=== PATIENT | female | born 1960 | race Caucasian/White ===

== ENCOUNTER → 2018-11-25 07:31 | Outpatient (CLI) | payer BC, SELFPAY ==
--- NOTE | 2018-11-25 07:34 | NM_ITS ---
History:C.P. Procedure: Patient exercised on Vipin protocol 5 minutes and 14 sec, resting heart rate 88 bpm, resting blood pressure 140/52, with exercise maximum heart rate achieve was 144 bpm which is greater than 85 % of the maximum predicted heart rate and blood pressure was 134/89. Test was stopped due to shortness of breath, patient denied any complaint of chest pain. Patient has adequate exercise capacity achieved 7 mets of workload on treadmill, the blood pressure response to exercise was adequate. Electrocardiogram: Resting electrocardiogram showed sinus rhythm ., with exercise there is less than 1.5mm ST segment depression noted from the baseline EKG. The EKG portion of the exercise Myoview is negative for ischemia. Cardias Stress and Resting SPECT images: Cardias Stress and Resting SPECT images were obtained using technetium 99m Myoview 29.8 mCi stress and 9.57 mCi at rest. Gated SPECT further analysis of segmental wall motion and calculation of ejection fraction also done. Cardiac stress and resting SPECT show uniform myocardial activity without segmental perfusion abnormality, the computer derived ejection fraction is over 65% with regional wall motion abnormality, right ventricle is normal size and contractility. Conclusion: 1. The EKG portion of the exercise Myoview is negative for ischemia, patient has adequate exercise capacity achieved 7mets of workload on treadmill, the blood pressure response to exercise was abnormal. 2. No scintigraphic evidence of reversible ischemia seen, computer derived ejection fraction is over 65%% with no regional wall motion abnormality, right ventricle is normal size and contractility. 3. Abnormal exercise Myoview study due to abnormal blood pressure response to exercise.
--- NOTE | 2018-11-25 10:24 | HMH.ITSHM ---
Current Home Medications as stated by this patient Judy Chang or veterans contact representative. []zertec hydrocodone/apap
== END ==
PROVIDERS: PCP Emergency Medicine; Visit Provider Emergency Medicine
DX: R07.9 Chest pain, unspecified (principal)
CPT/HCPCS: 78452; 93017; A9502

== ENCOUNTER → 2018-12-02 13:47 | Outpatient (CLI) | payer BC, SELFPAY ==
--- NOTE | 2018-12-02 13:48 | MR_ITS ---
PROCEDURE: MR CERVICAL SPINE WO CON CLINICAL INDICATION: neck pain NECK PAIN WITH NUMBNESS AND TINGLING DOWN LEFT ARM WITH HEADACHE COMPARISON: No exams were available for comparison TECHNIQUE: Standard multiplanar multiecho sequences are performed without contrast. 3-D MIP and myelographic images are also rendered and reviewed FINDINGS: There is reversal of the normal lordosis which may be due to patient positioning or muscle spasm.. There is normal alignment. The cranial cervical junction has an unremarkable appearance. C2-C3: Unremarkable. C3-C4: Degenerate disc disease with bulging disc with mild left-sided foraminal narrowing. C4-C5: There is mild anterolisthesis of C4 on C5 of 3 mm. Mild right-sided foraminal narrowing from uncovertebral hypertrophy. Degenerative disc disease C5-C6: Degenerative disc disease with bulging disc. There is canal stenosis at 10 mm with bilateral lateral recess and foraminal narrowing greater on the left with small left foraminal disc osteophyte complex. There is minimal impingement upon the cord anteriorly C6-C7: Mild degenerative disc disease with minimal bulging disc. Borderline canal stenosis. C7-T1: Unremarkable. IMPRESSION: Multilevel cervical spondylosis with reversal of lordosis. C3-C4: Degenerative disc disease with bulging disc with mild left-sided foraminal narrowing. C4-C5: There is mild anterolisthesis of C4 on C5 of 3 mm. Mild right-sided foraminal narrowing from uncovertebral hypertrophy. Degenerative disc disease C5-C6: Degenerative disc disease with bulging disc. There is canal stenosis at 10 mm with bilateral lateral recess and foraminal narrowing greater on the left with small left foraminal disc osteophyte complex. There is minimal impingement upon the cord anteriorly C6-C7: Mild degenerative disc disease with minimal bulging disc. Borderline canal stenosis Dictated by: Sergio Moseley MD 12/03/2018 06:05 Signed by: <Electronically signed by Sergio Moseley MD in [place]> 12/03/2018 06:05
--- NOTE | 2018-12-02 13:48 | MR_ITS ---
PROCEDURE: MR LUMBAR SPINE WO CON CLINICAL INDICATION: back pain Left-sided low back pain. Right leg numbness COMPARISON: No exams were available for comparison TECHNIQUE: Standard multiplanar multiecho sequences are performed without contrast. 3-D MIP and myelographic images are also rendered and reviewed FINDINGS: There is normal alignment. The spinal cord ends at the L1 level. T11-T12 and T12-L1 have an unremarkable appearance. L1-L2: Tiny left paracentral disc protrusion without impingement. L2-L3: Mild degenerative disc disease with bulging disc along with a small broad-based left paracentral and foraminal disc protrusion with annular fissure causing left lateral recess and left foraminal narrowing abutting the anterior aspect of the left L3 nerve root. L3-L4: Mild bulging disc with mild facet ligamentum hypertrophy. L4-5: Degenerative disc disease with mild bulging disc and facet hypertrophic change with mild bilateral foraminal narrowing slightly greater on the right. L5-S1: Unremarkable. No canal stenosis. There is a 1 cm right renal cyst. IMPRESSION: L2-L3: Mild degenerative disc disease with bulging disc along with a small broad-based left paracentral and foraminal disc protrusion with annular fissure causing left lateral recess and left foraminal narrowing abutting the anterior aspect of the left L3 nerve root. L3-L4: Mild bulging disc with mild facet ligamentum hypertrophy. L4-5: Degenerative disc disease with mild bulging disc and facet hypertrophic change with mild bilateral foraminal narrowing slightly greater on the right Dictated by: Sergio Moseley MD 12/03/2018 06:25 Signed by: <Electronically signed by Sergio Moseley MD in [place]> 12/03/2018 06:25
== END ==
PROVIDERS: PCP Emergency Medicine; Visit Provider Emergency Medicine
DX: M51.36 Other intervertebral disc degeneration, lumbar region (principal); M50.30 Other cervical disc degeneration, unspecified cervical region
CPT/HCPCS: 72141; 72148; 76376

== ENCOUNTER → 2019-03-13 17:05 | Outpatient (CLI) | payer BC, SELFPAY | PROVIDERS: Visit Provider Emergency Medicine | DX: R31.9 Hematuria, unspecified (principal) | CPT/HCPCS: 87086 ==

== ENCOUNTER 2020-04-26 20:26 | Emergency (ER) | payer BC, SELFPAY ==
[2020-04-26 20:30] VITALS: BP 176/102; PULSE 87; RESP 20; TEMP 36.7; O2SAT 95; BMI 29.7
--- NOTE | 2020-04-26 20:39 | HMH.EDUTC ---
[facility] Disposition Clinical Impression: DDD (degenerative disc disease), cervical Low back pain Qualifiers: Chronicity: acute Back pain laterality: right Sciatica presence: with sciatica Sciatica laterality: sciatica of right side Qualified Code(s): M54.41 - Lumbago with sciatica, right side Disposition: Home, Self-Care Condition on Discharge: Good Instructions: Degenerative Disc Disease, DI for Back Pain With Sciatica Additional Instructions: Go home and rest. It would be best if you rested tomorrow too. No heavy lifting. No twisting. Take the oral medications as directed. The muscle relaxer (robaxin) will make you drowsy, so don't drive or operate heavy machinery after taking it. Don't start the oral steroids (medrol dose pack) until tomorrow, since you had the shots in here today. Follow up with your regular doctor. GO TO THE ER FOR ANY WORSENING SYMPTOMS OR CONCERN, ESPECIALLY BOWEL OR BLADDER ISSUES, SADDLE AREA NUMBNESS, FEVER, ETC Prescriptions: Ibuprofen [Ibuprofen 800mg Tablet] 800 mg PO Q8HP PRN #30 tab PRN Reason: Moderate Pain Transmission Status: Sent to [facility] Methocarbamol [Robaxin 500mg Tab] 500 mg PO BIDP PRN #30 tab PRN Reason: Muscle Spasm Transmission Status: Sent to [facility] Referrals: Paulino Oneil MD [Primary Care Provider] - Time of Disposition: 21:00 Medical Decision Making - Medical Records Medical records reviewed: No: I reviewed the patient's medical records. - Dipak Inquiry Pt receiving controlled substance: No Vital Signs: 04/26/20 20:30 04/26/20 20:57 Temperature 98.0 F 98.0 F Temperature Source Oral Pulse Rate 87 Pulse Rate [Right Brachial] 87 Respiratory Rate 20 20 Blood Pressure 176/102 H Blood Pressure [Right Arm] 176/102 H Blood Pressure Mean [Right Arm] 126 Blood Pressure Source [Right Arm] Automatic Cuff Blood Pressure Position [Right Arm] Sitting 02 Sat by Pulse Oximetry 95 Oxygen Delivery Method Room Air Orders (Tests/Meds): ED MEDICATIONS Discontinued Medications Generic Name Dose Route Start Last Admin Trade Name Freq PRN Reason Stop Dose Admin Methylprednisolone Sodium Succinate 125 mg 04/26/20 20:47 04/26/20 20:50 Methylprednisolone Sod Succ 125mg Vial IM 04/26/20 20:48 125 mg ONCE ONE Administration [facility] HPI - General Stated complaint: back pain Time Seen by Provider: 04/26/20 20:39 - History of Present Illness Provider Complaint: She c/o low back pain since around 1400 today. She states that she was lifting a case of pop out of her trunk of her car and felt a pop in her lower back. Since then she has had low back pain. She states the pain radiates down her rigth leg at times. She rates it as a 7/10 at this time. She denies any lower extremity numbness. She denies any bowel or bladder complaints. - Related Data Home Medications Medication Instructions Recorded Confirmed cetirizine 10 mg tablet 10 mg PO DAILY 10/10/18 03/13/19 hydrocodone 10 mg-acetaminophen 1 tab PO TID PRN 10/10/18 03/13/19 325 mg tablet multivitamin 1 tab PO DAILY 10/10/18 03/13/19 Previous Rx's Medication Instructions Recorded fluticasone propionate 50 1 spray INTRANASAL DAILY #9.9 g 12/26/18 mcg/actuation nasal spray,suspension bupropion HCl 75 mg tablet 75 mg PO BID #60 tab 12/30/18 cyclobenzaprine 10 mg tablet 10 mg PO TID #21 tab 03/13/19 prednisone 20 mg tablet 20 mg PO BID #10 tab 03/13/19 Ibuprofen [Ibuprofen 800mg 800 mg PO Q8HP PRN #30 tab 04/26/20 Tablet] Methocarbamol [Robaxin 500mg Tab] 500 mg PO BIDP PRN #30 tab 04/26/20 Allergies Allergy/AdvReac Type Severity Reaction Status Date / Time latex Allergy Verified 03/13/19 15:06 Sulfa (Sulfonamide Allergy Verified 04/26/20 20:45 Antibiotics) [facility] History - Hepatitis A Screen Attestation statement:: This patient has been screened for Hepatitis A risk factors. I have reviewed th
[2020-04-26 20:57] VITALS: BP 176/102; PULSE 87; RESP 20; TEMP 36.7; O2SAT 95
== END 2020-04-26 21:08 | disposition home or self-care (01) ==
PROVIDERS: Emergency Provider Nurse Practitioner Family; PCP Emergency Medicine
DX: M50.30 Other cervical disc degeneration, unspecified cervical region (principal); M54.41 Lumbago with sciatica, right side; F17.210 Nicotine dependence, cigarettes, uncomplicated; Z91.040 Latex allergy status; Z88.2 Allergy status to sulfonamides
CPT/HCPCS: 96372; 99202; G0463

== ENCOUNTER → 2020-05-07 18:15 | Outpatient (CLI) | payer BC, SELFPAY ==
[2020-05-07 18:47] LABS: Basophils # 0.1 K/mm3 (0-0.2); Basophils % 0.4 % (0.1-2.0); Eosinophils # 0.1 K/mm3 (0.0-0.4); Eosinophils % 0.4 % (0.1-12.0); Hematocrit 47.9 % (37.0-47.0); Hemoglobin 16.4 g/dL (12.2-16.2); Lymphocytes # 3.4 K/mm3 (0.7-4.5); Lymphocytes % 20.1 % (10-50); Mean Corpuscular HGB Conc 34.3 g/dL (31.8-35.4); Mean Corpuscular Hemoglobin 33.2 pg (27.0-31.2); Mean Corpuscular Volume 96.7 fl (81-99); Mean Platelet Volume 8.1 fl (7.4-10.4); Monocytes # 0.6 K/mm3 (0.1-1.0); Monocytes % 3.7 % (1.7-9.3); Neutrophils # 12.6 K/mm3 (1.8-7.8); Neutrophils % 75.3 % (37.0-80.0); Platelet Count 299 K/mm3 (142-424); Red Blood Count 4.95 M/mm3 (4.20-5.40); White Blood Count 16.7 K/mm3 (4.8-10.8)
[2020-05-07 19:01] LABS: MANUAL DIFFERENTIAL MANUAL DIFFERENTIAL (MANUAL DIFF)
[2020-05-07 20:14] LABS: Alanine Aminotransferase 23 U/L (12-78); Albumin Level 4.9 g/dl (3.5-5.0); Albumin/Globulin Ratio 1.4 (1.1-1.8); Alkaline Phosphatase 261 U/L (38-126); Anion Gap 18.6 mEq/L (5-15); Aspartate Amino Transferase 23 U/L (14-36); Bilirubin,Total 0.6 mg/dl (0.2-1.3); Blood Urea Nitrogen 21 mg/dl (7-17); Calcium 10.2 mg/dl (8.4-10.2); Carbon Dioxide 23 mmol/L (22.0-30.0); Chloride 103 mmol/L (98-107); Chol/HDL Ratio 2.9 (1-3.5); Cholesterol 288 mg/dl (140-200); Estimated Glomerular Filt Rate 74 ml/min (>60); GFR (African American) 89 ML/MIN (>60); Globulin 3.4 g/dL (1.3-3.2); Glucose 124 mg/dl (74-100); HDL Cholesterol 100 mg/dl (40-60); Potassium 4.6 mmoL/L (3.5-5.1); Sodium 140 mmol/L (136-145); Total Protein,Serum 8.3 g/dl (6.3-8.2); Triglycerides 154 mg/dl (30-150); VLDL Cholesterol 31 mg/dL (0-40)
[2020-05-07 20:25] LABS: Direct LDL Cholesterol 155.77 mg/dL (100-129)
[2020-05-07 20:31] LABS: Free T4 (Free Thyroxine) 1.17 ng/dl (0.78-2.19)
[2020-05-07 20:45] LABS: Eosinophils % 1 % (0-3); Lymphocytes % 22 % (10-50); Monocytes % 6 % (2-9); Neutrophils % 71 % (42-76); Platelet Estimate Normal; RBC Morphology Normal; Thyroid Stimulating Hormone 2.07 uIU/mL (0.465-4.68); Total Cells Counted 100
[2020-05-07 20:53] LABS: 25-OH Vitamin D, Total < 12.8 ng/mL (30-100)
[2020-05-08 11:47] LABS: Hemoglobin A1C 5.5 % (4.0-6.0)
== END ==
PROVIDERS: Physician Assistant; Visit Provider Emergency Medicine
DX: E66.3 Overweight (principal); E55.9 Vitamin D deficiency, unspecified; R73.9 Hyperglycemia, unspecified
CPT/HCPCS: 80053; 80061; 82306; 83036; 84439; 84443; 85007; 85025

== ENCOUNTER → 2020-05-16 08:48 | Outpatient (CLI) | payer BC, SELFPAY ==
--- NOTE | 2020-05-16 08:53 | MR_ITS ---
PROCEDURE: MR LUMBAR SPINE WO CON CLINICAL INDICATION: back pain LOW BACK PAIN WORSE ON LEFT SIDE, LT LEG PAIN. SYMPTOMS X1 WEEK. NO INJURY OR TRAUMA. COMPARISON: MR MR LUMBAR SPINE WO CON from 12/02/2018 TECHNIQUE: Standard multiplanar multiecho sequences are performed without contrast. 3-D MIP and myelographic images are also rendered and reviewed FINDINGS: There is normal alignment. The spinal cord ends at the L1 level. T10-T11: Degenerative disc disease. T11-T12: Unremarkable. T12-L1: Unremarkable. L1-L2: Unremarkable. L2-L3: Small left paracentral and foraminal and lateral disc protrusion/disc osteophyte complex along with facet and ligamentum hypertrophy with left lateral recess and foraminal narrowing. This abuts the L3 nerve root anteriorly. Overall no significant change. L3-L4: Mild facet and ligamentum hypertrophy L4-5: Degenerative disc disease with endplate irregularity. There is bulging disc which is eccentric toward the right better demonstrated on the sagittal images with suspected disc osteophyte complex causing right foraminal narrowing. The degenerative disc disease appears slightly worse. L5-S1: Unremarkable. No extruded herniated disc or bony canal stenosis. IMPRESSION: 1. L2-L3: Small left paracentral and foraminal and lateral disc protrusion/disc osteophyte complex along with facet and ligamentum hypertrophy with left lateral recess and foraminal narrowing. This abuts the L3 nerve root anteriorly. Overall no significant change. 2. L3-L4: Mild facet and ligamentum hypertrophy 3. L4-5: Degenerative disc disease with endplate irregularity. There is bulging disc which is eccentric toward the right better demonstrated on the sagittal images with suspected disc osteophyte complex causing right foraminal narrowing. Slight worsening of the degenerative disc disease. 4. No extruded herniated disc or bony canal stenosis. Dictated by: Sergio Moseley MD 05/19/2020 08:33 Sergio Moseley MD in [place] 05/19/2020 08:33
== END ==
PROVIDERS: PCP Emergency Medicine; Visit Provider Emergency Medicine
DX: M54.5 Low back pain (principal)
CPT/HCPCS: 72148; 76376

== ENCOUNTER → 2020-05-17 08:04 | Outpatient (CLI) | payer BC, SELFPAY ==
--- NOTE | 2020-05-17 08:09 | MM_ITS ---
PROCEDURE: MM DIG SCREENING MAMM BI W/CAD Digital Breast Tomosynthesis Included CLINICAL INDICATION: screening There is a history of breast cancer patient's sister. The patient is not certain where previous mammograms were performed and will call back with information and if previous films can be obtained an addendum can be added later. COMPARISON: No exams were available for comparison TECHNIQUE: Standard CC and MLO images and 3D Tomosynthesis was obtained. R2 CAD reviewed. FINDINGS: The breasts are composed primarily of fat with minimal scattered fibroglandular densities in each breast. There is a benign-appearing calcification in each breast. There is no suspicious lesion in either breast and no suspicious microcalcifications. IMPRESSION: Fatty type breast parenchyma with no suspicious lesions seen BI-RAD Category: 2 Benign Finding(s) FOLLOW-UP: 1YR 1 Year Follow-up (A letter has been sent to the patient regarding results of the study.) Dictated by: Dr. Huy Wiggins MD 05/20/2020 10:48 Dr. Huy Wiggins MD in [place] 05/20/2020 10:48
--- NOTE | 2020-05-17 08:09 | US_ITS ---
PROCEDURE: US ABDOMEN LIMITED CLINICAL INDICATION: elevated alk phos Status COMPARISON: No exams were available for comparison FINDINGS: PANCREAS: Unremarkable. No obvious mass or abnormal fluid collection. No ductal dilatation LIVER: No focal liver lesions demonstrated. Homogeneous echogenicity. No intrahepatic biliary ductal dilatation evident. There is appropriate direction of blood flow within a non dilated portal vein RIGHT KIDNEY: Unremarkable. Normal size and echogenicity. No hydronephrosis GALLBLADDER: Prior cholecystectomy. Mild prominence of the common bile duct at 8 mm which could be due to reservoir effect from the prior cholecystectomy. IMPRESSION: Prior cholecystectomy with mild prominence of the common bile otherwise negative Dictated by: Sergio Moseley MD 05/17/2020 17:32 Sergio Moseley MD in [place] 05/17/2020 17:32
== END ==
PROVIDERS: PCP Emergency Medicine; Visit Provider Emergency Medicine
DX: Z12.31 Encounter for screening mammogram for malignant neoplasm of breast (principal); R74.8 Abnormal levels of other serum enzymes
CPT/HCPCS: 76705; 77063; 77067

== ENCOUNTER → 2020-05-29 12:41 | Outpatient (CLI) | payer BC, SELFPAY ==
--- NOTE | 2020-05-29 12:48 | XR_ITS ---
PROCEDURE: XR HIP RT 2-3V W/PELVIS CLINICAL INDICATION: right hip pain COMPARISON: No exams were available for comparison FINDINGS: No fracture or dislocation. No lytic or blastic change. There is a small sclerotic focus in the right ilium inferiorly measuring 9 mm and may be due to a bone island. There are minimal osteoarthritic changes of the hips with mild sclerosis of the acetabular roof IMPRESSION: Minimal osteoarthritic change of the hips. Dictated by: Sergio Moseley MD 05/29/2020 13:57 Sergio Moseley MD in [place] 05/29/2020 13:57
--- NOTE | 2020-05-29 12:48 | XR_ITS ---
PROCEDURE: XR KNEE RT 4V CLINICAL INDICATION: right knee pain COMPARISON: No exams were available for comparison FINDINGS: No fracture or dislocation. No lytic or blastic change. There is normal mineralization. There are mild osteoarthritic changes of the lateral compartment. Other findings:None. IMPRESSION: Mild osteoarthritis Dictated by: Sergio Moseley MD 05/29/2020 13:55 Sergio Moseley MD in [place] 05/29/2020 13:55
== END ==
PROVIDERS: PCP Emergency Medicine; Visit Provider Orthopaedic Surgery
DX: M25.551 Pain in right hip (principal); M25.561 Pain in right knee
CPT/HCPCS: 73502; 73564

== ENCOUNTER → 2020-06-06 14:27 | Outpatient (CLI) | payer BC, SELFPAY ==
--- NOTE | 2020-06-06 14:39 | MR_ITS ---
PROCEDURE: MR KNEE RT WO CON CLINICAL INDICATION: evaluate for meniscal tear Chronic right knee pain with no known recent injury or trauma. History of right knee surgery 2 years ago COMPARISON: CR XR KNEE RT 4V from 05/29/2020 TECHNIQUE: Routine multiplanar multi echo sequences are performed without gadolinium enhancement. FINDINGS: There is a small amount of fluid in the joint space. There is normal patellofemoral alignment in this imaging position. There is extensive heterogeneity and surface irregularity of cartilage in the patellofemoral compartment. There is thinning and irregularity of cartilage in the lateral compartment. Thinning of cartilage in the medial department with heterogeneity. There is subcortical cystic change with localized edema in the superolateral tibial plateau. There are no other locations of edema. The medial meniscus is intact and normal. The lateral meniscus overlies the area of tibial bony injury but there is no definite tear involving the overlying lateral meniscus, correlate clinically. The ACL and PCL are intact and normal. The quadriceps and patellar tendons are intact and normal. The medial collateral ligament and the lateral collateral ligament complex are intact. Popliteus muscle and tendon are intact and normal. IMPRESSION: Three compartment chondromalacia with small joint effusion the chronic or post injury change in the lateral tibial plateau immediately underlying the lateral meniscus but without definite meniscal tear by MRI appearance. Dictated by: Janett Quiroga MD 06/06/2020 18:03 Janett Quiroga MD in [place] 06/06/2020 18:03
== END ==
PROVIDERS: PCP Emergency Medicine; Visit Provider Orthopaedic Surgery
DX: M25.561 Pain in right knee (principal)
CPT/HCPCS: 73721

== ENCOUNTER → 2020-06-27 09:46 | Outpatient (POV) | payer BC, SELFPAY ==
[2020-06-27 10:12] VITALS: BP 135/88; PULSE 74; RESP 18; O2SAT 98; BMI 30.5
--- NOTE | 2020-06-27 14:00 | HMH.PMCON ---
Assessment and Plan (1) Low back pain Status: Chronic Category: Medical Code(s): M54.5 - Low back pain (2) Lumbar disc disease with radiculopathy Status: Chronic Category: Medical Code(s): M51.16 - Intervertebral disc disorders with radiculopathy, lumbar region - Assessment and plan all Dx Assessment and Plan for all problems:: We will set the patient up for an L4-L5 lumbar epidural steroid injection I do believe given her symptomology that this would benefit her. I will follow-up with her after this reassess her symptoms at that time she was instructed to call the office if she has any issues prior to her next appointment. Dr. Segundo has reviewed this note and agrees with this plan of care. This note was dictated using voice recognition software and may contain errors or omissions HPI - Data of Consult Consult date: 06/27/20 Requesting Physician: Saundra Stanford APRN Primary Care Provider: Paulino Oneil MD - Consult Narrative Reason for consult: Low back pain History of present illness: Ms. Chang is a 59 year old female who presents today for consultation in regards to her low back pain. She rates her pain a 6 out of 10 she has radiation of her pain down her left leg. Patient states that her job with repetitive motion makes it quite a bit more difficult. Patient states that stretching decreases her pain somewhat. She has left leg numbness and tingling. Patient has tried and completed physical therapy with minimal relief. She is on [place] from her primary care physician she states it is helpful however she is noticing her back worsening. Patient is interested in potential interventional treatment of her pain. She has had this pain for over 6 months and has failed over 6 months of conservative therapy including medication management. CC: Saundra Stanford APRN [facility] History I have reviewed the patient's past medical history: Yes Medical History: Reports:: Anxiety, Hyperlipidemia, Hypertension Denies:: Cancer, Diabetes Mellitus Type 1, Diabetes Mellitus Type 2, MRSA *Have you ever received a pneumonia vaccine?: Yes *Have you received a flu vaccine this season?: Yes Other Medical History: Reports: Arthritis, Other Laterality Cases: Right: Arthroscopy Knee, Bilateral: Tonsillectomy Other Surgeries: Yes: Cholecystectomy, Colonoscopy, Diagnostic Lap, Hysterectomy-Partial Amputation: No Fractures: No - *Social History Smoking Status: Current every day smoker Tobacco Type: cigarettes # Packs/Day (cigarettes): 1 Alcohol Intake: never Alcohol Intake Frequency:: holidays/special occasions only Substance Use Type: denies use *Occupational Status:: employed Housing: house Household Members: other *Travel in the last 8 weeks: None - Psychiatric History Pschychiatric History:: Reports:: Anxiety Family Hx:: Unable to obtain Review of Systems - Review of Systems ROS General: no recent weight change, no fever, no sleep disturbances Respiratory: no cough, no shortness of air, no recurring pulmonary infections Cardiovascular/Peripheral Vascular: No chest pain, No palpitations, no edema, no shortness of breath. Gastrointestinal: no new onset incontinence, normal bowel movements reported Genitourinary: no new onset incontinence Musculoskeletal: Back pain, leg pain Psychiatric: normal mood/ affect Neurological: [denies new onset weakness in extremities], [denies new onset balance issues] Meds Home Medications Medication Instructions Recorded Confirmed Type cetirizine 10 mg tablet 10 mg PO DAILY 10/10/18 06/25/20 History multivitamin 1 tab PO DAILY 10/10/18 06/25/20 History fluticasone propionate 50 1 spray INTRANASAL DAILY #9.9 g 12/26/18 06/25/20 Rx mcg/actuation nasal spray,suspension albuterol sulfate 90 mcg/actuation 2 puff INHALATION Q4-6H PRN #8.5 g 05/07/20 06/25/20 Rx aerosol inhaler atorvastatin 10 mg tablet 10 mg PO QHS #90 tab 05/08/20 06/25/20 Rx cholecalcifero
== END ==
PROVIDERS: PCP Emergency Medicine; Visit Provider Clinical Nurse Specialist Family Health
DX: M51.16 Intervertebral disc disorders with radiculopathy, lumbar region (principal)
CPT/HCPCS: 99202; G0463

== ENCOUNTER 2020-07-05 09:37 | Day surgery (SDC) | payer BC, SELFPAY ==
[2020-07-05 09:55] VITALS: BP 139/78; PULSE 79; RESP 18; TEMP 36.8; O2SAT 98; BMI 30.5
[2020-07-05 10:35] VITALS: BP 139/74; BP 140/71; PULSE 72; PULSE 74; RESP 18; O2SAT 98
--- NOTE | 2020-07-05 10:37 | P.PCN_ITS ---
- Procedure Date: 07/05/20 Time: 10:37 Anesthesiologist:: Albert Segundo MD Complications:: None Pre-procedure Diagnosis:: Disease of lumbar spine with lumbar radiculopathy symptoms Post-procedure Diagnosis:: Same Indications for Procedure:: This patient is a pleasant 59-year-old white female who we are treating for low back pain with lumbar radiculopathy symptoms. She has increasing low back pain radiating down her legs. She is on [place] from her primary care physician however she has some worsening of her back pain. She wants to proceed with lumbar epidural steroid injection under fluoroscopy today. Procedure Details:: Lumbar epidural steroid injection under fluoroscopy Informed consent was obtained and the risk and benefits of the procedure was exp lained to the patient. The patient was taken to the procedure room. The patient was placed prone on the procedure table. The patient was prepped and draped in sterile fashion. C-arm fluoroscopy was used to view the lumbar spine. Skin and subcutaneous tissues were anesthetized using lidocaine. I placed an 18-gauge epidural needle and advanced into the L4-L5 interspace using fluoroscopic guidance and [id number] to air. After confirmation of needle placement in the epidural space with dye I injected 2 mL of lidocaine 1.5% with Depo-Medrol 80 mg. Patient tolerated the procedure well with no complications. Plan and Disposition:: We will follow-up with her in 2 weeks. Will reevaluate symptoms at that time.
[2020-07-05 10:47] VITALS: BP 139/64; PULSE 76; RESP 18; O2SAT 98
== END 2020-07-05 10:47 | disposition home or self-care (01) ==
LOC: SC.PAINP 09:37
PROVIDERS: PCP Emergency Medicine; Visit Provider Anesthesiology
DX: M51.16 Intervertebral disc disorders with radiculopathy, lumbar region (principal); M54.06 Panniculitis affecting regions of neck and back, lumbar region; M47.896 Other spondylosis, lumbar region; Z88.2 Allergy status to sulfonamides; Z91.040 Latex allergy status; Z72.0 Tobacco use
CPT/HCPCS: 62323; J1040; Q9966

== ENCOUNTER → 2020-07-20 12:49 | Outpatient (CLI) | payer BC, SELFPAY ==
[2020-07-20 15:50] LABS: Coronavirus 19 IgG Antibody Negative (Negative); Coronavirus 19 IgM Antibody Negative (Negative)
== END ==
PROVIDERS: Visit Provider Internal Medicine Gastroenterology
DX: Z01.818 Encounter for other preprocedural examination (principal); Z20.822 Contact with and (suspected) exposure to COVID-19; Z12.11 Encounter for screening for malignant neoplasm of colon
CPT/HCPCS: 36415; 86328

== ENCOUNTER 2020-07-22 09:00 | Day surgery (SDC) | payer BC, SELFPAY ==
[2020-07-19 13:01] VITALS: BMI 30.5
[2020-07-22 09:18] VITALS: BP 111/81; PULSE 80; RESP 20; TEMP 36.6; O2SAT 99
[2020-07-22 09:40] VITALS: O2SAT 97
--- NOTE | 2020-07-22 10:05 | HMH.PROC ---
[facility] Procedure Note Procedure Note:: Colonoscopy Procedure Report: Colonoscopy Endoscopist: Victor M Tomas II, MD Referring physician: Paulino Oneil MD Date of Procedure: July 22, 2020 Equipment: Olympus 190 variable stiffness pediatric colonoscope Sedation: MAC sedation Indication: Mrs. Chang is a 59-year-old female who is here for high risk screening colonoscopy. Her mother had colon cancer at the age of 81. The patient's last colonoscopy was approximately 15 years ago (with me). She reports no abdominal pain, weight loss, change in her bowel habits or rectal bleeding. Procedure: Prior to the procedure, a history and physical exam was performed, and patient's medications and allergies were reviewed. The risks, benefits and alternatives of the sedation and procedure were discussed with the patient. All questions were answered and informed consent was obtained. The patient was brought to the procedure room. Patient identification and proposed procedure were verified by the physician and the nurse. The patient was placed in a left lateral decubitus position and the scope was passed under direct vision. Throughout the procedure, the patient's blood pressure, pulse, and oxygen saturations were monitored continuously. The colonoscopy was accomplished without difficulty. The patient tolerated the procedure well. Findings: On digital rectal examination there was normal rectal tone. There were no external hemorrhoids. The colonoscope was introduced through the anal canal to the rectum and advanced to the cecum. The ileocecal valve and appendiceal orifice were identified. The scope was advanced a short distance into the ileum which appeared grossly normal. The scope was then withdrawn into the colon. The cecum, ascending and transverse colon and mucosa were grossly normal. There were scattered diverticuli throughout the colon but more predominantly in the descending and sigmoid colon (LEFT colon). The rectum itself was normal. Upon retroflexion within the rectum there were grade 1 internal hemorrhoids. The preparation was excellent throughout with Huntington Preparation Score of 9. The cecal time was 11 minutes. Impression: 1. Pandiverticulosis 2. Grade 1 internal hemorrhoids Plan: Based upon the patient's family history, I would recommend repeat surveillance colonoscopy in 5 years. I would encourage bulk fiber supplementation on a maintenance basis.
[2020-07-22 10:08] VITALS: BP 107/59; PULSE 75; RESP 18; TEMP 36.9; O2SAT 98
[2020-07-22 10:18] VITALS: BP 132/59; PULSE 73; RESP 18; O2SAT 98
--- NOTE | 2020-07-22 10:20 | P.PN_ITS ---
[facility] Anesthesia Checklist - Patient Identification Patient Identification: Arm Band - Structural Data Admitted From: Home Planned Operative Procedure/s: colonoscopy Consent for Planned Operative Procedure(s) Verified: Yes Verified Documents: Surgical Consent, History and Physical - NPO Status Verified Time NPO: 00:00 - Additional verifications Anesthesia Reactions: No Hx Blood Transfusions: No Blood Transfusion Reaction: No - Airway Assessment C-Spine Mobility Assessed: Yes (mp2) TMJ Mobility Assessed: Yes Dentition: Good Dentition - Neurological Assessment Level of Consciousness: Awake, Alert - Anesthesia Plan Anesthesia Risk discussed: Yes Anesthesia Plan: Verified ASA Class: II Anesthesia Type: MAC [facility] History I have reviewed the patient's past medical history: Yes Medical History: Reports:: Anxiety, Hyperlipidemia, Hypertension Denies:: Cancer, Diabetes Mellitus Type 1, Diabetes Mellitus Type 2, Internal Pacemaker, MRSA, Seizures *Have you ever received a pneumonia vaccine?: No *Have you received a flu vaccine this season?: Yes Other Medical History: Reports: Arthritis, Other. Denies: Blood Transfusion Reaction Anesthesia experience/problems:: nac Laterality Cases: Right: Arthroscopy Knee, Bilateral: Tonsillectomy Other Surgeries: Yes: Cholecystectomy, Colonoscopy, Diagnostic Lap, Hysterectomy-Partial. No: Pacemaker Amputation: No Fractures: No - *Social History Last grade of school completed: High school graduate Smoking Status: Current every day smoker Tobacco Type: cigarettes # Packs/Day (cigarettes): 1 Alcohol Intake: never Alcohol Intake Frequency:: holidays/special occasions only Substance Use Type: denies use *Occupational Status:: employed Housing: house Household Members: none *Travel in the last 8 weeks: None - Psychiatric History Pschychiatric History:: Reports:: Anxiety Family Hx:: Unable to obtain
[2020-07-22 10:28] VITALS: BP 142/81; PULSE 71; RESP 18; O2SAT 99
[2020-07-22 10:59] VITALS: BP 139/65; PULSE 69; RESP 18; O2SAT 99
== END 2020-07-22 11:00 | disposition home or self-care (01) ==
PROVIDERS: PCP Emergency Medicine; Visit Provider Internal Medicine Gastroenterology
PROC: 0DJD8ZZ Inspection of Lower Intestinal Tract, Via Natural or Artificial Opening Endoscopic (ICD-10-PCS; CPT 45378; principal; 2020-07-22 10:00)
DX: Z12.11 Encounter for screening for malignant neoplasm of colon (principal); Z80.0 Family history of malignant neoplasm of digestive organs; K57.30 Diverticulosis of large intestine without perforation or abscess without bleeding; K64.0 First degree hemorrhoids; I10 Essential (primary) hypertension; E78.5 Hyperlipidemia, unspecified; F41.9 Anxiety disorder, unspecified; M19.90 Unspecified osteoarthritis, unspecified site; Z90.49 Acquired absence of other specified parts of digestive tract; Z72.0 Tobacco use; Z79.899 Other long term (current) drug therapy
CPT/HCPCS: 45378

== ENCOUNTER → 2020-08-08 08:26 | Outpatient (POV) | payer BC, SELFPAY ==
[2020-08-08 08:29] VITALS: BP 153/61; PULSE 84; RESP 18; O2SAT 98; BMI 30.5
--- NOTE | 2020-08-08 08:47 | HMH.PAINSOAP ---
[facility] Pain Management SOAP Note Subjective:: She is a pleasant 59-year-old white female who presents today for follow-up after lumbar epidural steroid injection. Patient got good relief from this for several weeks after her injection. She had 80% relief. Patient is interested in completing the epidural series of 3 injections. She is not on any anticoagulation therapy. Patient is seeing orthopedic for her right knee. Patient starting physical therapy for this. Patient rates her pain today 6 out of 10. She is tried and failed multiple conservative therapies including medication management. ROS General: no recent weight change, no fever, no sleep disturbances Respiratory: no cough, no shortness of air, no recurring pulmonary infections Cardiovascular/Peripheral Vascular: No chest pain, No palpitations, no edema, no shortness of breath. Gastrointestinal: no new onset incontinence, normal bowel movements reported Genitourinary: no new onset incontinence Musculoskeletal: Back pain Psychiatric: normal mood/ affect Neurological: [denies new onset weakness in extremities], [denies new onset balance issues] Objective:: Physical Exam General: Alert and oriented x3, no acute distress, pleasant and cooperative, [on room air] Lungs: Resps E/U, Symmetrical chest expansion, Eyes: PERRL Musculoskeletal: Flexion and extension of lumbar spine somewhat guarded secondary to pain, deep tendon reflexes normal, strength in upper and lower extremities [5/5], [abnormal gait noted] Neurological: speech clear, plant operator control room operator equal, no gross sensory deficits Assessment:: Degenerative disc disease lumbar spine lumbar radiculopathy, back pain Plan:: We will schedule the patient for 2 L4-L5 lumbar epidural steroid injections 1 month apart. Given the efficacy of the first 1 I do believe that finishing the series of injections would be beneficial for her. I will follow-up with her afterwards reassess her symptoms at that time she has been instructed to call the office if she has any issues prior to her next appointment. Dr. Segundo has reviewed this note and agrees with this plan of care. This note was dictated using voice recognition software and may contain errors or omissions [facility] History I have reviewed the patient's past medical history: Yes Medical History: Reports:: Anxiety, Hyperlipidemia, Hypertension Denies:: Cancer, Diabetes Mellitus Type 1, Diabetes Mellitus Type 2, Internal Pacemaker, MRSA, Seizures *Have you ever received a pneumonia vaccine?: No *Have you received a flu vaccine this season?: Yes Other Medical History: Reports: Arthritis, Other. Denies: Blood Transfusion Reaction Laterality Cases: Right: Arthroscopy Knee, Bilateral: Tonsillectomy Other Surgeries: Yes: Cholecystectomy, Colonoscopy, Diagnostic Lap, Hysterectomy-Partial. No: Pacemaker Amputation: No Fractures: No - *Social History Smoking Status: Current every day smoker Tobacco Type: cigarettes # Packs/Day (cigarettes): 1 Alcohol Intake: never Alcohol Intake Frequency:: holidays/special occasions only Substance Use Type: denies use *Occupational Status:: employed Housing: house Household Members: none *Travel in the last 8 weeks: None - Psychiatric History Pschychiatric History:: Reports:: Anxiety Family Hx:: Unable to obtain
== END ==
PROVIDERS: Visit Provider Clinical Nurse Specialist Family Health
DX: M51.16 Intervertebral disc disorders with radiculopathy, lumbar region (principal)
CPT/HCPCS: 99212; G0463

== ENCOUNTER → 2020-08-13 17:42 | Outpatient (CLI) | payer BC, SELFPAY ==
[2020-08-13 18:27] LABS: Amphetamine/Metha Screen,Urine Negative ng/ml (<1000)
[2020-08-13 18:28] LABS: Barbiturates Screen,Urine Negative ng/ml (<200); Benzodiazepines Screen,Urine Negative ng/ml (<200)
[2020-08-13 18:29] LABS: Cannabinoid Screen,Urine Negative ng/ml (<50)
[2020-08-13 18:30] LABS: Cocaine Screen,Urine Negative ng/ml (<300)
[2020-08-13 18:31] LABS: Methadone Screen,Urine Negative ng/ml (<300); Opiate Screen,Urine Positive ng/ml (<300)
[2020-08-13 18:32] LABS: Phencyclidine Screen,Urine Negative ng/ml (<25)
== END ==
PROVIDERS: Visit Provider Emergency Medicine
DX: Z79.899 Other long term (current) drug therapy (principal)
CPT/HCPCS: 80305

== ENCOUNTER 2020-08-16 09:04 | Day surgery (SDC) | payer BC, SELFPAY ==
[2020-08-16 09:16] VITALS: BP 133/85; PULSE 65; RESP 18; TEMP 37.1; O2SAT 97; BMI 30.5
[2020-08-16 09:51] VITALS: BP 140/78; PULSE 65; RESP 18; O2SAT 98
[2020-08-16 09:52] VITALS: BP 145/78; PULSE 85; RESP 18; O2SAT 98
--- NOTE | 2020-08-16 10:00 | HMH.PMPROC ---
- Procedure Date: 08/16/20 Time: 10:00 Anesthesiologist:: Albert Segundo MD Complications:: None Pre-procedure Diagnosis:: Degenerative disc disease of lumbar spine with lumbar radiculopathy symptoms Post-procedure Diagnosis:: Same Indications for Procedure:: This patient is a pleasant 59-year-old white female who we are treating for low back pain with lumbar radiculopathy symptoms. She has increasing pain in her low back radiating down both legs. She has benefited from these injections in the past. She was 80% better for several weeks. Pain is just now starting to return. Will do lumbar epidural steroid injection today to see if this helps with her pain symptoms that are starting to come back. Procedure Details:: Informed consent was obtained and the risk and benefits of the procedure was explained to the patient. The patient was taken to the procedure room. The patient was placed prone on the procedure table. The patient was prepped and draped in sterile fashion. C-arm fluoroscopy was used to view the lumbar spine. Skin and subcutaneous tissues were anesthetized using lidocaine. I placed an 18-gauge epidural needle and advanced into the L4-L5 interspace using fluoroscopic guidance and [id number] to air. After confirmation of needle placement in the epidural space with dye I injected 2 mL of lidocaine 1.5% with Depo-Medrol 80 mg. Patient tolerated the procedure well with no complications. Plan and Disposition:: We will follow-up with her in 2 weeks. Will reevaluate symptoms at that time.
[2020-08-16 10:15] VITALS: BP 138/93; PULSE 83; RESP 20; O2SAT 98
== END 2020-08-16 10:15 | disposition home or self-care (01) ==
LOC: SC.PAINP 09:05
PROVIDERS: PCP Emergency Medicine; Visit Provider Anesthesiology
DX: M51.16 Intervertebral disc disorders with radiculopathy, lumbar region (principal); I10 Essential (primary) hypertension; E78.5 Hyperlipidemia, unspecified; M19.90 Unspecified osteoarthritis, unspecified site; F41.9 Anxiety disorder, unspecified; J44.9 Chronic obstructive pulmonary disease, unspecified; Z88.2 Allergy status to sulfonamides; Z91.040 Latex allergy status; Z72.0 Tobacco use
CPT/HCPCS: 62323; J1040; Q9966

== ENCOUNTER → 2020-10-15 13:46 | Outpatient (CLI) | payer BC, SELFPAY ==
[2020-10-15 14:26] LABS: Amphetamine/Metha Screen,Urine Negative ng/ml (<1000); Barbiturates Screen,Urine Negative ng/ml (<200)
[2020-10-15 14:28] LABS: Benzodiazepines Screen,Urine Negative ng/ml (<200)
[2020-10-15 14:29] LABS: Cannabinoid Screen,Urine Negative ng/ml (<50)
[2020-10-15 14:30] LABS: Cocaine Screen,Urine Negative ng/ml (<300); Methadone Screen,Urine Negative ng/ml (<300)
[2020-10-15 14:31] LABS: Opiate Screen,Urine Positive ng/ml (<300); Phencyclidine Screen,Urine Negative ng/ml (<25)
== END ==
PROVIDERS: Visit Provider Emergency Medicine
DX: M51.9 Unspecified thoracic, thoracolumbar and lumbosacral intervertebral disc disorder (principal)
CPT/HCPCS: 80305

== ENCOUNTER → 2020-12-03 14:58 | Outpatient (POV) | payer BC, SELFPAY | PROVIDERS: Visit Provider Dermatology | DX: Z00.00 Encounter for general adult medical examination without abnormal findings (principal) ==

== ENCOUNTER → 2020-12-11 14:30 | Outpatient (CLI) | payer BC, SELFPAY ==
[2020-12-11 15:35] LABS: Barbiturates Screen,Urine Negative ng/ml (<200); Benzodiazepines Screen,Urine Negative ng/ml (<200)
[2020-12-11 15:36] LABS: Amphetamine/Metha Screen,Urine Positive ng/ml (<1000); Cannabinoid Screen,Urine Negative ng/ml (<50)
[2020-12-11 15:37] LABS: Cocaine Screen,Urine Negative ng/ml (<300)
[2020-12-11 15:38] LABS: Methadone Screen,Urine Negative ng/ml (<300); Opiate Screen,Urine Positive ng/ml (<300)
[2020-12-11 15:39] LABS: Phencyclidine Screen,Urine Negative ng/ml (<25)
== END ==
PROVIDERS: Visit Provider Emergency Medicine
DX: Z79.899 Other long term (current) drug therapy (principal)
CPT/HCPCS: 80305

== ENCOUNTER → 2021-01-14 13:38 | Outpatient (POV) | payer BC, SELFPAY | PROVIDERS: Visit Provider Dermatology | DX: Z00.00 Encounter for general adult medical examination without abnormal findings (principal) ==

== ENCOUNTER 2021-02-02 10:54 | Emergency (ER) | payer BC, SELFPAY ==
[2021-02-02 11:20] VITALS: BP 145/82; PULSE 95; RESP 18; TEMP 36.8; O2SAT 96; BMI 26.3
[2021-02-02 11:41] LABS: Adenovirus,PCR Not Detected (NotDetected); Bordetella Pertussis Not Detected (NotDetected); Chlamydophila Pneumoniae, PCR Not Detected (NotDetected); Coronavirus 19, PCR Not Detected (NotDetected); Coronavirus 229E Not Detected (NotDetected); Coronavirus NL63 Not Detected (NotDetected); Coronavirus OC43 Not Detected (NotDetected); Coronovirus HKU1,PCR Not Detected (NotDetected); Human Metapneumovirus Not Detected (NotDetected); Influenza A, PCR Not Detected (NotDetected); Influenza AH1, 2009 Not Detected (NotDetected); Influenza AH1, PCR Not Detected (NotDetected); Influenza AH3,PCR Not Detected (NotDetected); Influenza B, PCR Not Detected (NotDetected); Mycoplasma Pneumoniae, PCR Not Detected (NotDetected); Parainfluenza 1, PCR Not Detected (NotDetected); Parainfluenza 2, PCR Not Detected (NotDetected); Parainfluenza 3, PCR Not Detected (NotDetected); Parainfluenza 4, PCR Not Detected (NotDetected); Respiratory Syncytial Virus Not Detected (NotDetected); Rhinovirus/Enterovirus Not Detected (NotDetected)
[2021-02-02 11:47] LABS: UTC Strep Screen (Rapid) Negative (Negative)
--- NOTE | 2021-02-02 12:00 | HMH.EDUTC ---
[facility] Disposition Clinical Impression: Viral upper respiratory illness Disposition: Home, Self-Care Condition on Discharge: Good Instructions: How to Care for a Surgical Wound, Dicyclomine, Doxycycline, DI for Viral Syndrome Additional Instructions: Make sure to keep area on side clean and dry and make sure to follow up for your wound culture results Call Dr Guerra office tomorrow and make appointment for follow up Follow up for wound culture results Return if needed Straight to ER if any life threatening symptoms You were tested for today for COVID19 your test result should be back in the next 24-48 hours, you was given handout on how to log onto the [facility] portal to view your results if you have trouble logging on you may call the [facility] You was given a handout with instructions for Self Quarantine and Self isolation for while you wait on test results and what to do if they are positive If you are positive the Health Dept will be contacting you also Make sure to take your Vitamins Vit. C Vit D and Zinc if you can take them Prescriptions: Dicyclomine HCl [Bentyl 10mg capsule] 10 mg PO TID PRN #15 cap PRN Reason: Cramping Transmission Status: Pending to [facility] Doxycycline Monohydrate [Doxycycline [place]acier 100mg Tab] 100 mg PO BID 7 Days #14 tab Transmission Status: Pending to [facility] Referrals: Paulino Oneil MD [Primary Care Provider] - Erin Guerra MD [Referring] - As needed Forms: Work/School Release Time of Disposition: 12:28 Medical Decision Making - Dipak Inquiry Pt receiving controlled substance: No Dipak was queried for this patient: No Vital Signs: 02/02/21 11:20 Temperature 98.2 F Temperature Source Oral Pulse Rate [Right Brachial] 95 H Respiratory Rate 18 Blood Pressure [Right Arm] 145/82 H Blood Pressure Mean [Right Arm] 103 Blood Pressure Source [Right Arm] Automatic Cuff Blood Pressure Position [Right Arm] Sitting 02 Sat by Pulse Oximetry 96 Oxygen Delivery Method Room Air - Lab Data Lab results reviewed: Yes: I reviewed the patient's lab results. Lab Results 02/02/21 11:32: Strep Scn Rapid Clinic Negative Orders (Tests/Meds): ORDERS Category Date Time Status Full Resp Panel w/COVID ([facility]) Routine Lab 02/02/21 11:36 Received Strep Screen Confirmation Stat Micro 10/17/21 11:32 Received Medical Decision Narrative: small opening noted where patient had had skin Ca removed with small amount of drainage noted area cleaned well and steri strips placed to help keep surrounding skin from tearing open area left so if wound continued to drain it would be possible Discussed with patient and recommended calling office in the morning for further instructions and appointment as soon as possible [facility] HPI - General Stated complaint: sore throat, body aches, nausea Time Seen by Provider: 02/02/21 12:01 Mode of Arrival: Ambulatory Source of Information: Patient Limitations: No Limitations Description of Symptoms (Recalled from Triage Doc. by RN): PATIENT C/O BODY ACHES, DIARRHEA, VOMITING, SORE THROAT, HEADACHE, CHILLS THAT STARTED YESTERDAY BUT ARE WORSE TODAY. EXPOSED TO RSV LAST WEDNESDAY. SHE ALSO STATES SHE HAD A SKIN CANCER REMOVED ON 01/14 AND STATES THAT THE AREA HAS OPENED AND IS DRAINING. HEENT Symptoms (Recalled from RN notes): Yes Resp Symptoms (Recalled from RN notes): No Skin Symptoms (Recalled from RN notes): No MS Symptoms (Recalled from RN notes): No Functional Status (Recalled from RN notes): WNL - History of Present Illness Provider Complaint: Patient states that she was around her grandchild last week that tested positive for RSV and states that she had the flu shot on Wednesday States that yesterday she started having body aches, chills, sore throat, headache and diarrhea States that today she was still feeling bad today having diarrhea so she came in to get checked and tested for COVID and RSV States that also she had some skin
[2021-02-02 12:29] VITALS: BP 145/82; PULSE 95; RESP 18; TEMP 36.8; O2SAT 96
== END 2021-02-02 12:40 | disposition home or self-care (01) ==
PROVIDERS: Emergency Provider Nurse Practitioner; PCP Emergency Medicine
DX: J06.9 Acute upper respiratory infection, unspecified (principal); Z20.822 Contact with and (suspected) exposure to COVID-19; F41.9 Anxiety disorder, unspecified; F17.210 Nicotine dependence, cigarettes, uncomplicated; Z91.040 Latex allergy status; Z88.2 Allergy status to sulfonamides
CPT/HCPCS: 87070; 87077; 87186; 87205; 87581; 87632; 87798; 87880; 99203; C9803; G0463; U0003; U0005

== ENCOUNTER → 2021-02-11 18:13 | Outpatient (CLI) | payer BC, SELFPAY ==
[2021-02-11 19:12] LABS: Amphetamine/Metha Screen,Urine Negative ng/ml (<1000); Barbiturates Screen,Urine Negative ng/ml (<200)
[2021-02-11 19:13] LABS: Benzodiazepines Screen,Urine Negative ng/ml (<200); Cannabinoid Screen,Urine Negative ng/ml (<50)
[2021-02-11 19:14] LABS: Cocaine Screen,Urine Negative ng/ml (<300)
[2021-02-11 19:15] LABS: Methadone Screen,Urine Negative ng/ml (<300); Opiate Screen,Urine Positive ng/ml (<300)
[2021-02-11 19:16] LABS: Phencyclidine Screen,Urine Negative ng/ml (<25)
== END ==
PROVIDERS: Visit Provider Emergency Medicine
DX: M48.061 Spinal stenosis, lumbar region without neurogenic claudication (principal)
CPT/HCPCS: 80305

== ENCOUNTER → 2021-04-09 17:20 | Outpatient (CLI) | payer BC, SELFPAY ==
[2021-04-09 19:08] LABS: Amphetamine/Metha Screen,Urine Negative ng/ml (<1000)
[2021-04-09 19:09] LABS: Barbiturates Screen,Urine Negative ng/ml (<200)
[2021-04-09 19:10] LABS: Cannabinoid Screen,Urine Negative ng/ml (<50)
[2021-04-09 19:11] LABS: Cocaine Screen,Urine Negative ng/ml (<300)
[2021-04-09 21:02] LABS: Benzodiazepines Screen,Urine Negative ng/ml (<200)
[2021-04-09 21:03] LABS: Methadone Screen,Urine Negative ng/ml (<300)
[2021-04-09 21:04] LABS: Phencyclidine Screen,Urine Negative ng/ml (<25)
[2021-04-09 21:10] LABS: Opiate Screen,Urine Positive ng/ml (<300)
== END ==
PROVIDERS: Visit Provider Emergency Medicine
DX: M47.812 Spondylosis without myelopathy or radiculopathy, cervical region (principal)
CPT/HCPCS: 80305

== ENCOUNTER → 2021-08-06 09:33 | Outpatient (CLI) | payer BC, SELFPAY | PROVIDERS: Visit Provider Nurse Practitioner Family | DX: B37.9 Candidiasis, unspecified (principal) | CPT/HCPCS: 87086 ==

== ENCOUNTER → 2021-08-19 16:52 | Outpatient (CLI) | payer BC, SELFPAY | LOC: LAB.DROPOF 08-20 16:53 | PROVIDERS: Visit Provider Nurse Practitioner Family | DX: T78.40XA Allergy, unspecified, initial encounter (principal); L03.032 Cellulitis of left toe; L25.9 Unspecified contact dermatitis, unspecified cause | CPT/HCPCS: 87070; 87077; 87186; 87205 ==

== ENCOUNTER → 2021-09-22 13:56 | Outpatient (CLI) | payer BC, SELFPAY ==
[2021-09-22 14:10] LABS: Benzodiazepines Screen,Urine Negative ng/ml (<200)
[2021-09-22 14:11] LABS: Amphetamine/Metha Screen,Urine Negative ng/ml (<1000); Barbiturates Screen,Urine Negative ng/ml (<200)
[2021-09-22 14:12] LABS: Cannabinoid Screen,Urine Negative ng/ml (<50)
[2021-09-22 14:13] LABS: Cocaine Screen,Urine Negative ng/ml (<300); Methadone Screen,Urine Negative ng/ml (<300)
[2021-09-22 14:14] LABS: Opiate Screen,Urine Positive ng/ml (<300)
[2021-09-22 14:15] LABS: Phencyclidine Screen,Urine Negative ng/ml (<25)
== END ==
PROVIDERS: PCP Emergency Medicine; Visit Provider Emergency Medicine
DX: Z79.899 Other long term (current) drug therapy (principal)
CPT/HCPCS: 80305

== ENCOUNTER → 2021-11-21 13:00 | Outpatient (CLI) | payer BC, SELFPAY ==
[2021-11-21 17:44] LABS: Barbiturates Screen,Urine Negative ng/ml (<200)
[2021-11-21 17:45] LABS: Amphetamine/Metha Screen,Urine Negative ng/ml (<1000); Benzodiazepines Screen,Urine Negative ng/ml (<200)
[2021-11-21 17:46] LABS: Cannabinoid Screen,Urine Negative ng/ml (<50); Cocaine Screen,Urine Negative ng/ml (<300)
[2021-11-21 17:47] LABS: Methadone Screen,Urine Negative ng/ml (<300)
[2021-11-21 17:48] LABS: Opiate Screen,Urine Positive ng/ml (<300); Phencyclidine Screen,Urine Negative ng/ml (<25)
== END ==
PROVIDERS: PCP Family Medicine; Visit Provider Family Medicine
DX: Z79.899 Other long term (current) drug therapy (principal)
CPT/HCPCS: 80305

== ENCOUNTER → 2022-01-20 15:10 | Outpatient (CLI) | payer BC, SELFPAY ==
[2022-01-20 22:44] LABS: Amphetamine/Metha Screen,Urine Negative ng/ml (<1000)
[2022-01-20 22:45] LABS: Barbiturates Screen,Urine Negative ng/ml (<200)
[2022-01-20 22:46] LABS: Benzodiazepines Screen,Urine Negative ng/ml (<200); Cannabinoid Screen,Urine Negative ng/ml (<50)
[2022-01-20 22:47] LABS: Cocaine Screen,Urine Negative ng/ml (<300)
[2022-01-20 22:48] LABS: Methadone Screen,Urine Negative ng/ml (<300); Opiate Screen,Urine Negative ng/ml (<300)
[2022-01-20 22:49] LABS: Phencyclidine Screen,Urine Negative ng/ml (<25)
== END ==
PROVIDERS: PCP Family Medicine; Visit Provider Family Medicine
DX: M50.30 Other cervical disc degeneration, unspecified cervical region (principal)
CPT/HCPCS: 80305

== ENCOUNTER 2022-03-05 08:03 | Emergency (ER) | payer BC, SELFPAY ==
[2022-03-05 08:30] VITALS: BP 161/90; PULSE 89; RESP 18; TEMP 36.9; O2SAT 96; BMI 25.0
--- NOTE | 2022-03-05 08:55 | EXP.UTC ---
Discharge Plan Disposition Patient Disposition: Home, Self-Care Condition: Good Prescriptions Prescriptions: New methylprednisolone [Medrol (Casimiro)] 4 mg tablets,dose pack See Rx Instructions .Route .COMPLEX 6 Days Qty: 21 0RF Rx Instructions: taper pack; No Action cetirizine [Zyrtec] 10 mg tablet 10 mg PO DAILY multivitamin [Daily Multi-Vitamin] Tablet 1 tab PO DAILY albuterol sulfate 90 mcg/actuation HFA aerosol inhaler 2 puff INHALATION Q4-6H PRN (Reason: shortness of breath or wheezing) Qty: 8.5 2RF diclofenac sodium 1 % gel 2 g TOPICAL QID Qty: 100 12RF Rx Instructions: apply to single elbow, wrist or hand; for hand includes palm/fingers/back of hand gabapentin 300 mg capsule 300 mg PO HS Qty: 30 5RF montelukast [Singulair] 10 mg tablet 10 mg PO DAILY Qty: 30 2RF hydrocodone-acetaminophen 7.5-325 mg tablet 1 tab PO QID PRN (Reason: pain) Qty: 120 0RF atorvastatin 10 MG tablet 10 mg PO QHS fluticasone propionate 9.9 ML spray,suspension 1 spray INTRANASAL NEEDED PRN (Reason: Allergic Reaction) Rx Instructions: administer into each nostril Referrals Follow up/Referrals: Paulino Oneil MD [Primary Care Provider] - See instructions Activity Restrictions/Add. Instructions Additional Instructions/Restrictions: Start oral steriods tomorrow Over the counter motrin and/or Tylenol as directed on package Return if needed Straight to ER if any life threatening sympotms Follow up with Family Doctor to no improvement or any worsening of symptoms Clinical Impressions Clinical Impression: Low back pain Qualifiers: Chronicity: chronic Back pain laterality: right Sciatica presence: with sciatica Sciatica laterality: sciatica of right side Qualified Code(s): M54.41 - Lumbago with sciatica, right side Instructions Patient Instructions: DI for Sciatica, DI for Chronic Pain -- Adult, DI for Back Pain With Sciatica Discharge ED Provider: Judy Meadows [facility] General Stated complaint: back pain Time Seen by Provider: 03/05/22 08:55 History of Present Illness Provider Complaint: Patient states that she has a history of back problems States that she has been having sciatica flare up for the last couple of days States that she has had it before and felt it coming on but has continued to get worse States today her low back was worse going into her right buttock and upper leg so she came in to see if she could get some injections to help it Related Data Home Medications Medication Instructions Recorded Confirmed cetirizine 10 mg tablet (Zyrtec) 10 mg PO DAILY allergies 10/10/18 01/20/22 multivitamin (Daily Multi-Vitamin 1 tab PO DAILY Supplement 10/10/18 01/20/22 tablet) atorvastatin 10 mg tablet 10 mg PO QHS Cholesterol 07/05/20 01/20/22 fluticasone propionate 50 1 spray intranasal NEEDED PRN 07/05/20 01/20/22 mcg/actuation nasal Allergic Reaction spray,suspension Previous Rx's Medication Instructions Recorded montelukast 10 mg tablet 10 mg PO DAILY #30 tabs 07/29/21 (Singulair) albuterol sulfate 90 mcg/actuation 2 puff inhalation Q4-6H PRN 11/21/21 aerosol inhaler shortness of breath or wheezing #8.5 grams diclofenac sodium 1 % topical gel 2 g topical QID #100 grams 01/20/22 gabapentin 300 mg capsule 300 mg PO HS Pain #30 caps 01/20/22 hydrocodone 7.5 mg-acetaminophen 1 tab PO QID PRN pain #120 tabs 02/20/22 325 mg tablet methylprednisolone 4 mg tablets in See Rx Instructions .Route 03/05/22 a dose pack (Medrol (Casimiro)) .COMPLEX 6 days #21 tabs Allergies Allergy/AdvReac Type Severity Reaction Status Date / Time Sulfa (Sulfonamide Allergy Verified 01/20/22 15:05 Antibiotics) latex AdvReac Verified 01/20/22 15:05 chlorahexidine AdvReac Uncoded 01/20/22 15:05 [facility] Medical History (Updated 03/05/22 @ 09:50 by Judy Meadows APRN) Skin cancer Urinary tract infection Surgical Histor
[2022-03-05 09:56] VITALS: BP 161/90; PULSE 89; RESP 18; TEMP 36.9; O2SAT 96
== END 2022-03-05 10:00 | disposition home or self-care (01) ==
PROVIDERS: Emergency Provider Nurse Practitioner; PCP Emergency Medicine
DX: M54.41 Lumbago with sciatica, right side (principal); Z87.39 Personal history of other diseases of the musculoskeletal system and connective tissue
CPT/HCPCS: 96372; 99213; G0463

== ENCOUNTER 2022-03-25 19:19 | Emergency (ER) | payer BC, SELFPAY ==
[2022-03-25 19:50] VITALS: BP 137/59; PULSE 89; RESP 18; TEMP 37; O2SAT 97; BMI 25.0
--- NOTE | 2022-03-25 20:20 | EXP.UTC ---
Discharge Plan Disposition Patient Disposition: Home, Self-Care Condition: Good Prescriptions Prescriptions: No Action cetirizine [Zyrtec] 10 mg tablet 10 mg PO DAILY multivitamin [Daily Multi-Vitamin] Tablet 1 tab PO DAILY albuterol sulfate 90 mcg/actuation HFA aerosol inhaler 2 puff INHALATION Q4-6H PRN (Reason: shortness of breath or wheezing) Qty: 8.5 2RF diclofenac sodium 1 % gel 2 g TOPICAL QID Qty: 100 12RF Rx Instructions: apply to single elbow, wrist or hand; for hand includes palm/fingers/back of hand meloxicam 15 mg tablet 15 mg PO DAILY Qty: 90 3RF hydrocodone-acetaminophen 7.5-325 mg tablet 1 tab PO QID PRN (Reason: pain) Qty: 120 0RF gabapentin 300 mg capsule 300 mg PO HS Qty: 30 5RF montelukast [Singulair] 10 mg tablet 10 mg PO DAILY Qty: 30 2RF atorvastatin 10 MG tablet 10 mg PO QHS fluticasone propionate 9.9 ML spray,suspension 1 spray INTRANASAL NEEDED PRN (Reason: Allergic Reaction) Rx Instructions: administer into each nostril Referrals Follow up/Referrals: Paulino Oneil MD [Primary Care Provider] - See instructions Activity Restrictions/Add. Instructions Additional Instructions/Restrictions: Follow up with your Family Doctor for further treatment and evaluation Follow up with your Back specialist as scheduled Straight to ER if any life threatneing symptoms Clinical Impressions Clinical Impression: Low back pain Qualifiers: Chronicity: unspecified Back pain laterality: right Sciatica presence: with sciatica Sciatica laterality: sciatica of right side Qualified Code(s): M54.41 - Lumbago with sciatica, right side Instructions Patient Instructions: DI for Chronic Pain -- Adult Discharge ED Provider: Judy Meadows [facility] General Stated complaint: back pain Mode of Arrival: Ambulatory Source of Information: Patient Limitations: No Limitations Time Seen by Provider: 03/25/22 20:20 Description of Symptoms (Recalled from Triage Doc. by RN): PT WITH LOW BACK PAIN THAT RADIATES DOWN RIGHT LEG. HAS HAD FOR 3 WEEKS, TREATED WITH STERIODS AND SEEN BY PCP EARLIER THIS WEEK FOR SAME SYMPTOMS HEENT Symptoms (Recalled from RN notes): No Resp Symptoms (Recalled from RN notes): No Skin Symptoms (Recalled from RN notes): No MS Symptoms (Recalled from RN notes): Yes Functional Status (Recalled from RN notes): WNL History of Present Illness Provider Complaint: Patient states she has a history of back issues and has flare ups of her sciatica States she was in the [email or web address] in Nov and had injection of Toradol and solumedrol and it helped States that she seen her PCP last week and he is sending her to back specialist States he was going to give her steriod shot and she wouldnt take it States that today she was having sciatica pain again and she took some Ibuprofen but tonight it was hurting her worse and come in willing to take SoluMedrol for her sciatica as she said it helped her last time Related Data Home Medications Medication Instructions Recorded Confirmed cetirizine 10 mg tablet (Zyrtec) 10 mg PO DAILY allergies 10/10/18 03/20/22 multivitamin (Daily Multi-Vitamin 1 tab PO DAILY Supplement 10/10/18 03/20/22 tablet) atorvastatin 10 mg tablet 10 mg PO QHS Cholesterol 07/05/20 03/20/22 fluticasone propionate 50 1 spray intranasal NEEDED PRN 07/05/20 03/20/22 mcg/actuation nasal Allergic Reaction spray,suspension Previous Rx's Medication Instructions Recorded montelukast 10 mg tablet 10 mg PO DAILY #30 tabs 07/29/21 (Singulair) albuterol sulfate 90 mcg/actuation 2 puff inhalation Q4-6H PRN 11/21/21 aerosol inhaler shortness of breath or wheezing #8.5 grams diclofenac sodium 1 % topical gel 2 g topical QID #100 grams 01/20/22 gabapentin 300 mg capsule 300 mg PO HS Pain #30 caps 03/20/22 hydrocodone 7.5 mg-acetaminophen 1 tab PO QID PRN pain #120 tabs 03/20/22 325 mg tablet meloxicam 15 mg tablet 15 mg PO AD
[2022-03-25 20:44] VITALS: BP 137/59; PULSE 89; RESP 18; TEMP 37; O2SAT 96
== END 2022-03-25 20:45 | disposition home or self-care (01) ==
PROVIDERS: Emergency Provider Nurse Practitioner; PCP Emergency Medicine
DX: M54.41 Lumbago with sciatica, right side (principal)
CPT/HCPCS: 96372; 99212; G0463

== ENCOUNTER → 2022-05-28 23:25 | Outpatient (CLI) | payer BC, SELFPAY ==
[2022-05-28 20:17] LABS: Amphetamine/Metha Screen,Urine Negative ng/ml (<1000); Barbiturates Screen,Urine Negative ng/ml (<200); Benzodiazepines Screen,Urine Negative ng/ml (<200); Cannabinoid Screen,Urine Negative ng/ml (<50); Cocaine Screen,Urine Negative ng/ml (<300); Methadone Screen,Urine Negative ng/ml (<300); Opiate Screen,Urine Positive ng/ml (<300); Phencyclidine Screen,Urine Negative ng/ml (<25)
== END ==
PROVIDERS: PCP Family Medicine; Visit Provider Family Medicine
DX: R82.90 Unspecified abnormal findings in urine (principal); Z79.899 Other long term (current) drug therapy
CPT/HCPCS: 80305; 87086

== ENCOUNTER → 2022-07-29 09:50 | Outpatient (CLI) | payer BC, SELFPAY ==
[2022-07-29 13:53] LABS: Alanine Aminotransferase 14 U/L (12-78); Albumin Level 3.8 g/dl (3.5-5.0); Albumin/Globulin Ratio 1.5 (1.1-1.8); Alkaline Phosphatase 186 U/L (38-126); Anion Gap 6.4 mEq/L (5-15); Aspartate Amino Transferase 24 U/L (14-36); Bilirubin,Total 0.5 mg/dl (0.2-1.3); Blood Urea Nitrogen 20 mg/dl (7-17); Calcium 8.5 mg/dl (8.4-10.2); Carbon Dioxide 28 mmol/L (22.0-30.0); Chloride 105 mmol/L (98-107); Chol/HDL Ratio 4.1 (1-3.5); Cholesterol 232 mg/dl (140-200); Estimated Glomerular Filt Rate 51 ml/min (>60); GFR (African American) 62 ML/MIN (>60); Globulin 2.6 g/dL (1.3-3.2); Glucose 98 mg/dl (74-100); HDL Cholesterol 56 mg/dl (40-60); Potassium 4.4 mmoL/L (3.5-5.1); Sodium 135 mmol/L (136-145); Total Protein,Serum 6.4 g/dl (6.3-8.2); Triglycerides 197 mg/dl (30-150); VLDL Cholesterol 39 mg/dL (0-40)
[2022-07-29 13:55] LABS: Amphetamine/Metha Screen,Urine Negative ng/ml (<1000)
[2022-07-29 13:56] LABS: Barbiturates Screen,Urine Negative ng/ml (<200); Benzodiazepines Screen,Urine Negative ng/ml (<200)
[2022-07-29 13:57] LABS: Cannabinoid Screen,Urine Negative ng/ml (<50)
[2022-07-29 13:58] LABS: Basophils # 0.1 K/mm3 (0-0.2); Basophils % 0.7 % (0.1-2.0); Cocaine Screen,Urine Negative ng/ml (<300); Eosinophils # 0.3 K/mm3 (0.0-0.4); Eosinophils % 3.6 % (0.1-12.0); Hematocrit 45.5 % (37.0-47.0); Hemoglobin 14.2 g/dL (12.2-16.2); Lymphocytes # 2.9 K/mm3 (0.7-4.5); Lymphocytes % 37.8 % (10-50); Mean Corpuscular HGB Conc 31.2 g/dL (31.8-35.4); Mean Corpuscular Hemoglobin 30.7 pg (27.0-31.2); Mean Corpuscular Volume 98.6 fl (81-99); Mean Platelet Volume 8.7 fl (7.4-10.4); Methadone Screen,Urine Negative ng/ml (<300); Monocytes # 0.3 K/mm3 (0.1-1.0); Monocytes % 4.3 % (1.7-9.3); Neutrophils # 4.1 K/mm3 (1.8-7.8); Neutrophils % 53.5 % (37.0-80.0); Platelet Count 233 K/mm3 (142-424); Red Blood Count 4.62 M/mm3 (4.20-5.40); White Blood Count 7.6 K/mm3 (4.8-10.8)
[2022-07-29 13:59] LABS: Opiate Screen,Urine Positive ng/ml (<300); Phencyclidine Screen,Urine Negative ng/ml (<25)
[2022-07-29 14:04] LABS: Direct LDL Cholesterol 112.25 mg/dL (100-129)
[2022-07-29 14:10] LABS: Free T4 (Free Thyroxine) 1.32 ng/dl (0.78-2.19)
[2022-07-29 14:11] LABS: 25-OH Vitamin D, Total 22.2 ng/mL (30-100)
[2022-07-29 14:24] LABS: Thyroid Stimulating Hormone 2.46 uIU/mL (0.465-4.68)
== END ==
LOC: LAB.DROPOF 13:28
PROVIDERS: PCP Emergency Medicine; Visit Provider Emergency Medicine
DX: R06.09 Other forms of dyspnea (principal); R07.9 Chest pain, unspecified; E55.9 Vitamin D deficiency, unspecified; M51.36 Other intervertebral disc degeneration, lumbar region; E66.3 Overweight; Z68.27 Body mass index [BMI] 27.0-27.9, adult; Z79.899 Other long term (current) drug therapy
CPT/HCPCS: 80053; 80061; 80305; 82306; 84439; 84443; 85025

== ENCOUNTER → 2022-12-30 08:37 | Outpatient (CLI) | payer BC, SELFPAY ==
[2022-12-11 20:52] LABS: Barbiturates Screen,Urine Negative ng/ml (<200)
[2022-12-11 20:53] LABS: Amphetamine/Metha Screen,Urine Negative ng/ml (<1000)
[2022-12-11 20:54] LABS: Benzodiazepines Screen,Urine Negative ng/ml (<200); Cannabinoid Screen,Urine Negative ng/ml (<50)
[2022-12-11 20:55] LABS: Cocaine Screen,Urine Negative ng/ml (<300); Methadone Screen,Urine Negative ng/ml (<300)
[2022-12-11 20:56] LABS: Opiate Screen,Urine Positive ng/ml (<300)
[2022-12-11 21:20] LABS: Phencyclidine Screen,Urine Negative ng/ml (<25)
== END ==
PROVIDERS: PCP Emergency Medicine; Visit Provider Emergency Medicine
DX: Z79.899 Other long term (current) drug therapy (principal)
CPT/HCPCS: 80305

== ENCOUNTER → 2023-02-08 10:30 | Outpatient (CLI) | payer BC, SELFPAY ==
[2023-02-08 20:33] LABS: Amphetamine/Metha Screen,Urine Negative ng/ml (<1000)
[2023-02-08 20:34] LABS: Barbiturates Screen,Urine Negative ng/ml (<200)
[2023-02-08 20:35] LABS: Benzodiazepines Screen,Urine Negative ng/ml (<200); Cannabinoid Screen,Urine Negative ng/ml (<50)
[2023-02-08 20:36] LABS: Cocaine Screen,Urine Negative ng/ml (<300); Methadone Screen,Urine Negative ng/ml (<300)
[2023-02-08 20:37] LABS: Opiate Screen,Urine Positive ng/ml (<300)
[2023-02-08 20:38] LABS: Phencyclidine Screen,Urine Negative ng/ml (<25)
== END ==
PROVIDERS: PCP Emergency Medicine; Visit Provider Emergency Medicine
DX: M50.30 Other cervical disc degeneration, unspecified cervical region (principal)
CPT/HCPCS: 80305

== ENCOUNTER 2023-05-04 12:03 | Outpatient (CLI) | payer BC, SELFPAY ==
[2023-05-04 13:35] LABS: Phencyclidine Screen,Urine Negative ng/ml (<25)
[2023-05-04 13:46] LABS: Amphetamine/Metha Screen,Urine Negative ng/ml (<1000)
[2023-05-04 13:47] LABS: Barbiturates Screen,Urine Negative ng/ml (<200); Benzodiazepines Screen,Urine Negative ng/ml (<200)
[2023-05-04 13:48] LABS: Cannabinoid Screen,Urine Negative ng/ml (<50)
[2023-05-04 13:49] LABS: Cocaine Screen,Urine Negative ng/ml (<300); Methadone Screen,Urine Negative ng/ml (<300)
[2023-05-04 13:52] LABS: Opiate Screen,Urine Negative ng/ml (<300)
[2023-05-07 11:19] LABS: Opiates Negative ng/mL (Cutoff=100)
[2023-05-08 08:35] LABS: Gabapentin,Urine Negative (.)
== END 2023-05-04 23:59 ==
LOC: LAB.DROPOF 12:03
PROVIDERS: PCP Nurse Practitioner Family; Visit Provider Nurse Practitioner Family
DX: Z79.899 Other long term (current) drug therapy (principal); M50.30 Other cervical disc degeneration, unspecified cervical region
CPT/HCPCS: 80307; 80361; G0480